=== PATIENT | male | born 1995 | race Caucasian/White ===

== ENCOUNTER 2017-07-05 18:02 | Emergency (ER) | payer OTHER ==
[2017-07-05 18:16] VITALS: BP 154/94; PULSE 64; RESP 18; TEMP 95
[2017-07-05] MEDS ORDERED: Acetaminophen-Codeine 300-30mg TAB PO STA (18:44)
[2017-07-05] MEDS ORDERED: HYDROcodone/APAP 5-325MG 1 EACH TAB PO STA (18:50)
--- NOTE | 2017-07-05 18:51 | ED ---
ENT HPI - General Chief complaint: Dental/Oral Stated complaint: dental pain, infection Time Seen by Provider: 07/05/17 18:37 Source: patient, RN notes reviewed Mode of arrival: ambulatory Limitations: no limitations - History of Present Illness Initial comments: This is a 22 year old male who presents to the emergency department with a chief complaint of dental pain located along the maxilla which has been ongoing for 5 days. The patient admits he has poor dentition, and is not currently under the care of a dentist. He states the pain is also along the gums of the affected teeth. He denies fever or abscess. - Related Data Previous Rx's Medication Instructions Recorded Hydrocodone/Acetaminophen [[place] 1 tab PO Q6HR PRN #15 tab 03/04/17 5-325] Hydrocodone/Acetaminophen [[place] 1 tab PO Q6HR PRN #20 tab 07/05/17 5-325] Ibuprofen [Motrin] 600 mg PO Q8HR PRN #30 tab 07/05/17 Penicillin V Potassium [Pen Vee K] 500 mg PO QID #40 tablet 07/05/17 Allergies Allergy/AdvReac Type Severity Reaction Status Date / Time atomoxetine [From Strattera] Allergy Nausea & Verified 07/05/17 18:16 Vomiting & Diarrhea Review of Systems ROS Statement: Those systems with pertinent positive or pertinent negative responses have been documented in the HPI. ROS Other: All systems not noted in ROS Statement are negative. Past Medical History Past Medical History: No Reported History History of Any Multi-Drug Resistant Organisms: None Reported Past Surgical History: No Surgical Hx Reported Past Psychological History: No Psychological Hx Reported Smoking Status: Current every day smoker Past Alcohol Use History: None Reported Past Drug Use History: Marijuana General Exam Limitations: no limitations General appearance: alert, in no apparent distress Head exam: Present: atraumatic, normocephalic, normal inspection ENT exam: Present: mucous membranes moist, other (Multiple missing and eroded maxillary and mandibular teeth. No inflammation, erythema or notable abscesses present. Tender with palpation of overlying gums of affected teeth. No periorbital or facial edema or erythema.). Absent: normal oropharynx Neck exam: Present: normal inspection, full ROM. Absent: tenderness, meningismus, lymphadenopathy Respiratory exam: Present: normal lung sounds bilaterally. Absent: respiratory distress, wheezes, rales, rhonchi, stridor Cardiovascular Exam: Present: regular rate, normal rhythm, normal heart sounds. Absent: systolic murmur, diastolic murmur, rubs, gallop, clicks Neurological exam: Present: alert, oriented X3, CN II-XII intact Psychiatric exam: Present: normal affect, normal mood Skin exam: Present: warm, dry, intact, normal color. Absent: rash Course Vital Signs 07/05/17 18:14 Temperature 95 F L Pulse Rate 64 Respiratory 18 Rate Blood Pressure 154/94 O2 Sat by Pulse 100 Oximetry Medical Decision Making - Medical Decision Making This is a 22 year old male patient who presented to the ED with a complaint of dental pain. Physical exam revealed mutliple missing and eroded teeth in the maxillary and mandibular region but no evidence of dental abscess. [place] was given for his pain. Disposition Clinical Impression: Dental caries, Toothache Disposition: HOME SELF-CARE Condition: Stable Instructions: Dental Caries (ED), Toothache (ED) Additional Instructions: Please return to the ER if symptoms worsen or any other concerns Prescriptions: Hydrocodone/Acetaminophen [[place] 5-325] 1 tab PO Q6HR PRN #20 tab PRN Reason: Pain Ibuprofen [Motrin] 600 mg PO Q8HR PRN #30 tab PRN Reason: Pain Penicillin V Potassium [Pen Vee K] 500 mg PO QID #40 tablet Referrals: Sergo Garcia MD [Primary Care Provider] - 1-2 days Time of Disposition: 18:54
[2017-07-05] MEDS ORDERED: IBUPROFEN 600 MG TAB PO STA (18:52)
== END 2017-07-05 19:04 | disposition home or self-care (01) ==
LOC: EC 18:02
DX: K02.9 Dental caries, unspecified (principal); F17.200 Nicotine dependence, unspecified, uncomplicated; Z88.8 Allergy status to other drugs, medicaments and biological substances; Z53.8 Procedure and treatment not carried out for other reasons
CPT/HCPCS: 99283

== ENCOUNTER 2017-10-31 22:41 | Emergency (ER) | payer OTHER ==
[2017-10-31 22:49] VITALS: BP 135/80; PULSE 69; RESP 14; TEMP 98.4
--- NOTE | 2017-10-31 22:58 | ED ---
General Adult HPI - General Chief complaint: Dental/Oral Stated complaint: Dental Pain Time Seen by Provider: 10/31/17 22:45 Source: patient, RN notes reviewed Mode of arrival: ambulatory Limitations: no limitations - History of Present Illness Initial comments: This is a 22-year-old male who presents emergency Department complaining of dental pain. Patient states it started a couple days ago and told him there is no fluctuant area or drainage the tooth is extremely tender to touch. Patient states the left upper incisor is well-developed pain is coming from. Patient denies any fever chills. Patient states she's had multiple problems with these in the past. Patient does not have a dentist. Patient has no medication for pain. - Related Data Previous Rx's Medication Instructions Recorded Hydrocodone/Acetaminophen [[place] 1 tab PO Q6HR PRN #15 tab 03/04/17 5-325] Hydrocodone/Acetaminophen [[place] 1 tab PO Q6HR PRN #20 tab 07/05/17 5-325] Ibuprofen [Motrin] 600 mg PO Q8HR PRN #30 tab 07/05/17 Penicillin V Potassium [Pen Vee K] 500 mg PO QID #40 tablet 07/05/17 Amoxicillin 500 mg PO Q8H #30 capsule 10/31/17 Ibuprofen [Motrin] 600 mg PO Q6HR PRN #20 tab 10/31/17 traMADol HCl [Ultram] 50 mg PO Q6H PRN #20 tab 10/31/17 Allergies Allergy/AdvReac Type Severity Reaction Status Date / Time atomoxetine [From Strattera] Allergy Nausea & Verified 10/31/17 22:49 Vomiting & Diarrhea Review of Systems ROS Statement: Those systems with pertinent positive or pertinent negative responses have been documented in the HPI. ROS Other: All systems not noted in ROS Statement are negative. Past Medical History Past Medical History: No Reported History History of Any Multi-Drug Resistant Organisms: None Reported Past Surgical History: No Surgical Hx Reported Past Psychological History: No Psychological Hx Reported Smoking Status: Current every day smoker Past Alcohol Use History: None Reported Past Drug Use History: Marijuana General Exam - General Exam Comments Initial Comments: GENERAL Patient is well-developed and well-nourished. Patient is in mild distress. EYES Patient's pupils are equal and round. Extraocular motion is intact MOUTH Patient has multiple teeth that have severe dental caries. The upper incisors very tender to palpation. There is no obvious abscess or swelling. SKIN Unremarkable NEURO The patient is alert and oriented 3 PYSCH Patient has normal interpersonal interactions. Limitations: no limitations Course Vital Signs 10/31/17 22:46 Temperature 98.4 F Pulse Rate 69 Respiratory 14 Rate Blood Pressure 135/80 O2 Sat by Pulse 100 Oximetry Disposition Clinical Impression: Dental caries, Toothache Disposition: HOME SELF-CARE Instructions: Toothache (ED), Dental Caries (ED) Prescriptions: Amoxicillin 500 mg PO Q8H #30 capsule Ibuprofen [Motrin] 600 mg PO Q6HR PRN #20 tab PRN Reason: For pain traMADol HCl [Ultram] 50 mg PO Q6H PRN #20 tab PRN Reason: When necessary for pain Is patient prescribed a controlled substance at d/c from ED?: No Referrals: Sergo Garcia MD [Primary Care Provider] - 1-2 days Time of Disposition: 22:57
== END 2017-10-31 23:04 | disposition home or self-care (01) ==
LOC: EC 22:41
DX: K02.9 Dental caries, unspecified (principal); F17.200 Nicotine dependence, unspecified, uncomplicated; Z88.8 Allergy status to other drugs, medicaments and biological substances
CPT/HCPCS: 99282

== ENCOUNTER 2017-11-03 18:41 | Emergency (ER) | payer OTHER ==
[2017-11-03 18:48] LABS: Glucose,Whole Blood 105 mg/dL (75-99)
[2017-11-03] MEDS ORDERED: SODIUM CHLORIDE 0.9% 1,000 ML IV ONE (18:50)
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
[2017-11-03 19:08] LABS: Basophils # (A) 0.1 k/uL (0-0.2); Basophils % (A) 1 %; Eosinophils # (A) 0.3 k/uL (0-0.7); Eosinophils % (A) 3 %; Lymphocytes # (A) 2.2 k/uL (1.0-4.8); Lymphocytes % (A) 21 %; MCH 30.5 pg (25.0-35.0); MCV 89.8 fL (80.0-100.0); Mean Platelet Volume 7.3; Monocytes # (A) 0.5 k/uL (0-1.0); Monocytes % (A) 5 %; Neutrophils # (A) 7.1 k/uL (1.3-7.7); Neutrophils % (A) 69 %; Platelet Count 228 k/uL (150-450); RBC 4.89 m/uL (4.30-5.90); RDW 13.3 % (11.5-15.5); WBC 10.3 k/uL (3.8-10.6)
[2017-11-03 19:15] LABS: INR 1.1 (<1.2); Partial Thromboplastin Time 23.9 sec (22.0-30.0); Prothrombin Time 11.1 sec (9.0-12.0)
[2017-11-03 19:18] LABS: ALT 38 U/L (21-72); AST 34 U/L (17-59); Albumin 4.6 g/dL (3.5-5.0); Alcohol 34 mg/dL; Alkaline Phosphatase 41 U/L (38-126); Amylase 69 U/L (30-110); Anion Gap 12 mmol/L; Blood Urea Nitrogen 8 mg/dL (9-20); Calcium 9.5 mg/dL (8.4-10.2); Carbon Dioxide 23 mmol/L (22-30); Chloride 107 mmol/L (98-107); Glucose 93 mg/dL (74-99); Lipase 369 U/L (23-300); Potassium 3.9 mmol/L (3.5-5.1); Sodium 142 mmol/L (137-145); Total Bilirubin 0.4 mg/dL (0.2-1.3); Total Protein 7.2 g/dL (6.3-8.2)
[2017-11-03 19:21] VITALS: BP 139/61; PULSE 80; RESP 18; TEMP 98.1
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
[2017-11-03 19:27] LABS: Creatine Kinase 238 U/L (55-170)
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
[2017-11-03 19:41] LABS: Creatine Kinase MB 1.7 ng/mL (0.0-2.4); Troponin I <0.012 ng/mL (0.000-0.034)
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
--- NOTE | 2017-11-03 19:56 | XR ---
EXAMINATION TYPE: XR knee limited RT DATE OF EXAM: 11/03/2017 COMPARISON: NONE HISTORY: Pain TECHNIQUE: 3 views FINDINGS: There is probably knee joint effusion. I see no fracture nor dislocation. Joint spaces are normal. IMPRESSION: Knee joint effusion.
--- NOTE | 2017-11-03 19:56 | XR ---
EXAMINATION TYPE: XR forearm LT DATE OF EXAM: 11/03/2017 COMPARISON: NONE HISTORY: Pain TECHNIQUE: 2 views FINDINGS: I see no fracture nor dislocation. Wrist joint and elbow joint appear intact. Soft tissues appear normal. IMPRESSION: Negative left forearm exam
[2017-11-03] MEDS ORDERED: MORPHINE SULFATE 2 MG/ML SYRINGE IVP STA (20:23)
[2017-11-03 20:26] LABS: Appearance,Urine Clear (Clear); Bilirubin,Urine Negative (Negative); Blood,Urine Negative (Negative); Color,Urine Light Yellow; Glucose,Urine (UA) Negative (Negative); Ketones,Urine Negative (Negative); Leukocyte Esterase,Urine Negative (Negative); Nitrite,Urine Negative (Negative); Protein,Urine Negative (Negative); Specific Gravity,Urine 1.019 (1.001-1.035); Urobilinogen,Urine <2.0 mg/dL (<2.0)
[2017-11-03 20:38] LABS: Amphetamine Screen,Urine Not Detected (NotDetected); Barbiturate Screen,Urine Not Detected (NotDetected); Benzodiazepines Screen,Urine Not Detected (NotDetected); Cocaine Screen,Urine Not Detected (NotDetected); Methadone Screen, Urine Not Detected (NotDetected); Opiate Screen,Urine Detected (NotDetected); Oxycodone Screen, Urine Not Detected (NotDetected); Phencyclidine Screen,Urine Not Detected (NotDetected); Tricyclic Antidepressant,Urine Not Detected (NotDetected); Urn Cannabinoid Scrn Detected (NotDetected)
[2017-11-03] MEDS ORDERED: LIDOCAINE 1% INJ 10MG/ML (20 ML MDV) SQ ONE (20:38)
== END 2017-11-03 21:25 | disposition home or self-care (01) ==
LOC: EC 18:41
DX: S01.81XA Laceration without foreign body of other part of head, initial encounter (principal); S27.321A Contusion of lung, unilateral, initial encounter; S80.01XA Contusion of right knee, initial encounter; S50.811A Abrasion of right forearm, initial encounter; F17.200 Nicotine dependence, unspecified, uncomplicated; Z88.8 Allergy status to other drugs, medicaments and biological substances; V27.4XXA Motorcycle driver injured in collision with fixed or stationary object in traffic accident, initial encounter; Y92.009 Unspecified place in unspecified non-institutional (private) residence as the place of occurrence of the external cause
CPT/HCPCS: 36415; 93005; 86900; 86901; 80053; 82150; 82550; 82553; 83605; 83690; 84484; 85025; 85610; 85730; 86850; 81003; 80306; 80320; 72170; 73090; 73560; 71045; 72125; 70486; 70450; 71260; 74177; 99284; 12013; 96374; L1830; J2001; J2270; Q9967

== ENCOUNTER 2017-11-03 22:15 | Emergency (ER) | payer OTHER ==
[2017-11-03 22:31] VITALS: RESP 18
[2017-11-03] MEDS ORDERED: ONDANSETRON 4 MG/2 ML VIAL IVP STA (22:37)
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
[2017-11-03 23:26] VITALS: BP 126/67; PULSE 60; TEMP 97.9
== END 2017-11-03 23:30 | disposition home or self-care (01) ==
LOC: EC 22:15
DX: S06.0X9D Concussion with loss of consciousness of unspecified duration, subsequent encounter (principal); R11.2 Nausea with vomiting, unspecified; R07.9 Chest pain, unspecified; F17.200 Nicotine dependence, unspecified, uncomplicated; Z53.29 Procedure and treatment not carried out because of patient's decision for other reasons; Z88.8 Allergy status to other drugs, medicaments and biological substances; V27 Motorcycle rider injured in collision with fixed or stationary object; Y92.410 Unspecified street and highway as the place of occurrence of the external cause
CPT/HCPCS: 99284; 96374; J2405

== ENCOUNTER → 2017-12-16 | Outpatient (CLI) | payer OTHER ==
--- NOTE | 2017-12-16 10:22 | MR ---
EXAMINATION TYPE: MR knee RT wo con DATE OF EXAM: 12/16/2017 COMPARISON: X-ray dated 11/03/2017 HISTORY: Effusion, right knee/ Instability/ Swelling TECHNIQUE: Multiplanar, multisequence imaging of the right knee is performed without IV contrast. FINDINGS: There is a large suprapatellar bursal fluid collection which does have some heterogeneity w hich may represent high protein content or a component of previous hemorrhage. Visualized patellar an d quadriceps tendons are intact. There is distention of the lateral recommended retinaculum but is be lieved to be intact. There is a large area of marrow edema or contusion involving the distal femur. Suspect a linear fract ure through the posterior femoral condyle which is minimally displaced. Medial collateral, lateral collateral, anterior cruciate, posterior cruciate ligaments intact. Lateral meniscus are intact. Linear signal posterior and medial meniscus suspicious for simple linear tear. Patellar cartilage is maintained. IMPRESSION: 1. Large area of marrow edema or contusion involving the distal medial femur with a linear area of ab normal signal involving the superior margin of the posterior femoral condyle compatible with a hairli ne fracture. 2. Simple linear tear posterior horn medial meniscus. 3. Large suprapatellar bursal fluid collection.
== END | disposition home or self-care (01) ==
LOC: RADMRIMAIN 09:28
PROVIDERS: ATTEND Orthopaedic Surgery
DX: S83.241A Other tear of medial meniscus, current injury, right knee, initial encounter (principal); M25.461 Effusion, right knee

== ENCOUNTER 2018-05-29 22:27 | Emergency (ER) | payer OTHER ==
[2018-05-29 22:41] VITALS: BP 149/84; PULSE 73; RESP 18; TEMP 98.2
[2018-05-29] MEDS ORDERED: DIPH,PERTUS(ACELL)TETVAC-LF 0.5 ML VIAL IM ONE (23:11)
[2018-05-29] MEDS ORDERED: LIDOCAINE 1% INJ 10MG/ML (20 ML MDV) SQ ONE (23:11)
[2018-05-29] MEDS ORDERED: IBUPROFEN 600 MG TAB PO STA (23:11)
--- NOTE | 2018-05-30 00:02 | ED ---
Wound/Laceration HPI - General Chief Complaint: Wound/Laceration Stated Complaint: Finger lac on lt hand Time Seen by Provider: 05/29/18 22:58 Source: patient Mode of arrival: ambulatory Limitations: no limitations - History of Present Illness Initial Comments: 23-year-old male patient presents to the emergency department today for evaluation of laceration to the distal tip of the left index finger. Patient states about an hour prior to arrival he was working in a car [place] when a part swiveled and pinched his finger. Patient states he is unable to get the bleeding to stop so he presented here for further evaluation. Patient denies any crush injury. States that he does have full range of motion and full sensation. Denies numbness or tingling. States he is unsure when his last tetanus vaccine was administered. Denies any other injuries. Patient denies any headache, neck pain, back pain, chest pain, shortness of breath, dizziness, weakness, abdominal pain, nausea, vomiting, or difficulties with bowel movements or urination. - Related Data Previous Rx's Medication Instructions Recorded Ibuprofen [Motrin] 600 mg PO Q8HR PRN #30 tab 05/30/18 Allergies Allergy/AdvReac Type Severity Reaction Status Date / Time atomoxetine [From Strattera] Allergy Nausea & Verified 05/29/18 22:49 Vomiting & Diarrhea Review of Systems ROS Statement: Those systems with pertinent positive or pertinent negative responses have been documented in the HPI. ROS Other: All systems not noted in ROS Statement are negative. Past Medical History Past Medical History: No Reported History History of Any Multi-Drug Resistant Organisms: None Reported Past Surgical History: No Surgical Hx Reported Past Psychological History: No Psychological Hx Reported Smoking Status: Current every day smoker Past Alcohol Use History: Rare Past Drug Use History: Marijuana General Exam Limitations: no limitations General appearance: alert, in no apparent distress, other (This is a well- developed, well-nourished adult male patient in no acute distress. Vital signs upon presentation are temperature 98.2F, pulse 73, respirations 18, blood pressure 149/84, pulse ox 100% on room air.) Eye exam: Present: normal appearance, PERRL, EOMI. Absent: scleral icterus, conjunctival injection, periorbital swelling Respiratory exam: Present: normal lung sounds bilaterally. Absent: respiratory distress, wheezes, rales, rhonchi, stridor Cardiovascular Exam: Present: regular rate, normal rhythm, normal heart sounds. Absent: systolic murmur, diastolic murmur, rubs, gallop, clicks Extremities exam: Present: full ROM, normal capillary refill, other (There is 1.5 cm laceration noted to the distal tip of the left index finger. There is no nail involvement. Skin is otherwise pink, warm, dry. Cap refill less than 3 seconds. Radial pulses 2+ and equal bilaterally. She has full range of motion to the right index finger with and without resistance.). Absent: normal inspection, tenderness, pedal edema, joint swelling, calf tenderness Neurological exam: Present: alert, oriented X3, CN II-XII intact Psychiatric exam: Present: normal affect, normal mood Skin exam: Present: warm, dry, intact, normal color. Absent: rash Course Vital Signs 05/29/18 22:37 Temperature 98.2 F Pulse Rate 73 Respiratory 18 Rate Blood Pressure 149/84 O2 Sat by Pulse 100 Oximetry Medical Decision Making - Medical Decision Making 23-year-old male patient presents to the emergency department today for evaluation of laceration to the distal tip of the left index finger. Physical examination did reveal a 1.5 cm laceration to the finger. I did repair the laceration using sutures. I did recommend x-ray to rule out any bony involvement, he refused. I did discuss risk of having a fracture and laceration including risk of infection, he verbalizes understanding and still declined x-ray. We did discuss wound care and signs or symptoms of infection. He is instructed to return in 7 days for suture removal. He is instructed to follow-up with his primary care physician for recheck in 1-2 days. Return parameters discussed in detail. He verbalizes understanding and agrees with this plan Disposition Clinical Impression: Finger laceration Disposition: HOME SELF-CARE Condition: Good Instructions: Care For Your Stitches (ED), Finger Laceration (ED) Additional Instructions: Keep wound clean and dry. Wash twice daily with warm water and antibacterial soap. Do not submerge in water. Monitor for signs or symptoms of infection including but not limited to swelling, redness, drainage of pus, fever, or chills. Return to the emergency department immediately for any new, worsening, or concerning symptoms. Prescriptions: Ibuprofen [Motrin] 600 mg PO Q8HR PRN #30 tab PRN Reason: Pain Is patient prescribed a controlled substance at d/c from ED?: No Referrals: Sergo Garcia MD [Primary Care Provider] - 1-2 days Time of Disposition: 00:02
--- NOTE | 2018-05-30 03:45 | ED ---
Disposition Clinical Impression: Finger laceration Disposition: HOME SELF-CARE Condition: Good Instructions: Care For Your Stitches (ED), Finger Laceration (ED) Additional Instructions: Keep wound clean and dry. Wash twice daily with warm water and antibacterial soap. Do not submerge in water. Monitor for signs or symptoms of infection including but not limited to swelling, redness, drainage of pus, fever, or chills. Return to the emergency department immediately for any new, worsening, or concerning symptoms. Prescriptions: Ibuprofen [Motrin] 600 mg PO Q8HR PRN #30 tab PRN Reason: Pain Is patient prescribed a controlled substance at d/c from ED?: No Referrals: Sergo Garcia MD [Primary Care Provider] - 1-2 days Procedures - Laceration Laceration #1 Consent Obtained: verbal consent Time Out Performed: Yes Indication: laceration Site: hand (Distal tip left index finger) Description: linear Depth: simple, single layer Anesthetic Used: lidocaine 1% Anesthesia Technique: nerve block Amount (mls): 8 Pre-repair: irrigated extensively Type of Sutures: nylon Size of Sutures: 5-0 Number of Sutures: 3 Technique: simple, interrupted Patient Tolerated Procedure: well, no complications Additional Comments: Laceration size: 1.5 cm
== END 2018-05-30 00:12 | disposition home or self-care (01) ==
LOC: EC 22:27
DX: S61.211A Laceration without foreign body of left index finger without damage to nail, initial encounter (principal); F17.200 Nicotine dependence, unspecified, uncomplicated; Z88.8 Allergy status to other drugs, medicaments and biological substances; Z23 Encounter for immunization; W26.8XXA Contact with other sharp object(s), not elsewhere classified, initial encounter; Y93.89 Activity, other specified
CPT/HCPCS: 90715; 99282; 12001; 90471; J2001

== ENCOUNTER 2024-09-15 10:09 | Emergency (ER) | payer OTHER ==
[2024-09-15 10:13] VITALS: TEMP 98
--- NOTE | 2024-09-15 10:38 | ED ---
ENT HPI - General Chief complaint: ENT Stated complaint: Sore Throat Time Seen by Provider: 09/15/24 10:23 Source: patient, RN notes reviewed Mode of arrival: ambulatory Limitations: no limitations - History of Present Illness Initial comments: This is a 29-year-old male presenting for sore throat (11/25) x 5 days. Patient describes pain as sharp with associated lymph node swelling. Patient endorses history of throat swelling without known cause or significant history of strep throat. Also mentions odynophagia and some nasal congestion with yellow discharge. Endorses use of homeopathic treatments and Motrin 400 with minimal relief. Denies fever, chills, fatigue, neck stiffness, drooling, dysphagia, chest pain, dyspnea, abdominal pain, N/V/D. MD complaint: sore throat Onset/Timin -: days(s) Severity scale (1-10): 9 Quality: sharp Consistency: constant Worsens with: swallowing, eating Associated Symptoms: pain with swallowing, rhinorrhea - Related Data Previous Rx's Medication Instructions Recorded Ibuprofen [Motrin] 600 mg PO Q8HR PRN #30 tab 05/30/18 Amoxicillin 500 mg PO BID #20 capsule 09/15/24 predniSONE 50 mg PO DAILY #5 tab 09/15/24 Allergies Allergy/AdvReac Type Severity Reaction Status Date / Time atomoxetine [From Strattera] Allergy Nausea & Verified 09/15/24 10:13 Vomiting & Diarrhea Review of Systems ROS Statement: Those systems with pertinent positive or pertinent negative responses have been documented in the HPI. ROS Other: All systems not noted in ROS Statement are negative. Past Medical History Past Medical History: No Reported History History of Any Multi-Drug Resistant Organisms: None Reported Past Surgical History: No Surgical Hx Reported Past Psychological History: No Psychological Hx Reported Past Alcohol Use History: Rare Past Drug Use History: Marijuana General Exam Limitations: no limitations General appearance: alert, in no apparent distress Head exam: Present: atraumatic, normocephalic, normal inspection Eye exam: Present: normal appearance, PERRL, EOMI. Absent: scleral icterus, conjunctival injection, periorbital swelling ENT exam: Present: mucous membranes dry, other (Tonsils 4+ with erythema and PND. Negative uvular deviation). Absent: normal oropharynx Neck exam: Present: tenderness, lymphadenopathy (Positive bilateral LAD with TTP, especially on left side). Absent: meningismus Respiratory exam: Present: normal lung sounds bilaterally. Absent: respiratory distress, wheezes, rales, rhonchi, stridor Cardiovascular Exam: Present: regular rate, normal rhythm, normal heart sounds. Absent: systolic murmur, diastolic murmur, rubs, gallop, clicks GI/Abdominal exam: Present: soft, normal bowel sounds. Absent: distended, tenderness, guarding, rebound, rigid Extremities exam: Present: normal inspection, full ROM, normal capillary refill. Absent: tenderness, pedal edema, joint swelling, calf tenderness Back exam: Present: normal inspection Neurological exam: Present: alert, oriented X3, CN II-XII intact Psychiatric exam: Present: normal affect, normal mood Skin exam: Present: warm, dry, intact, normal color. Absent: rash Course Vital Signs 09/15/24 10:10 Temperature 98.0 F Pulse Rate 73 Respiratory 16 Rate Blood Pressure 138/64 O2 Sat by Pulse 99 Oximetry Medical Decision Making - Medical Decision Making Was pt. sent in by a medical professional or institution (SYLVAIN Ricks, [employer] SUPERVISOR, urgent care, hospital, or skilled nursing...) When possible be specific @ -[No] Did you speak to anyone other than the patient for history (EMS, parent, family, police, friend...)? What history was obtained from this source @ -[No] Did you review nursing and triage notes (agree or disagree)? Why? @ -[I reviewed and agree with nursing and triage notes] Were old charts reviewed (outside hosp., previous admission, EMS record, old EKG, old radiological studies, urgent care reports/EKG's, skilled nursing records)? Report findings @ -[No old charts were reviewed] Differential Diagnosis (chest pain, altered mental status, abdominal pain women, abdominal pain men, vaginal bleeding, weakness, fever, dyspnea, syncope, headache, dizziness, GI bleed, back pain, seizure, CVA, palpatations, mental health, musculoskeletal)? @ -Strep tonsillitis, viral tonsillitis, URI, COVID, influenza, peritonsillar abscess, infectious mononucleosis, this is not an exhaustive list EKG interpreted by me (3pts min.). @ -[As above] X-rays interpreted by me (1pt min.). @ -[None done] CT interpreted by me (1pt min.). @ -[None done] U/S interpreted by me (1pt. min.). @ -[None done] What testing was considered but not performed or refused? (CT, X-rays, U/S, labs)? Why? @ -[None] What meds were considered but not given or refused? Why? @ -[None] Did you discuss the management of the patient with other professionals (professionals i.e. DrFlakito, PA, [employer] SUPERVISOR, lab, RT, psych nurse, social worker psychiatric, route delivery clerk, teacher, nuclear officer, case assembler)? Give summary @ -[No] Was smoking cessation discussed for >3mins.? @ -[No] Was critical care preformed (if so, how long)? @ -[No] Were there social determinants of health that impacted care today? How? (Homelessness, low income, unemployed, alcoholism, drug addiction, transportation, low edu. Level, literacy, decrease access to med. care, halfway, rehab)? @ -[No] Was there de-escalation of care discussed even if they declined (Discuss DNR or withdrawal of care, Hospice)? DNR status @ -[No] What co-morbidities impacted this encounter? (DM, HTN, Smoking, COPD, CAD, Cancer, CVA, ARF, Chemo, Hep., AIDS, mental health diagnosis, sleep apnea, morbid obesity)? @ -[None] Was patient admitted / discharged? Hospital course, mention meds given and route, prescriptions, significant lab abnormalities, going to OR and other pertinent info. @ -[hospital course] Undiagnosed new problem with uncertain prognosis? @ -[No] Drug Therapy requiring intensive monitoring for toxicity (Heparin, Nitro, Insulin, Cardizem)? @ -[No] Were any procedures done? @ -[No] Diagnosis/symptom? @ -[default] Acute, or Chronic, or Acute on Chronic? @ -Acute Uncomplicated (without systemic symptoms) or Complicated (systemic symptoms)? @ -Uncomplicated Side effects of treatment? @ -[No] Exacerbation, Progression, or Severe Exacerbation? @ -[No] Poses a threat to life or bodily function? How? (Chest pain, [place], PR, pneumonia, PE, COPD, DKA, ARF, appy, cholecystitis, CVA, Diverticulitis, Homicidal, Suicidal, threat to staff... and all critical care pts) @ -[No] - Lab Data Lab Results 09/15/24 Range/Units 10:59 Group A Strep (PCR) DETECTED A (Not Detectd) Disposition Clinical Impression: Streptococcal tonsillitis Disposition: HOME SELF-CARE Condition: Good Instructions (If sedation given, give patient instructions): Tonsillitis (ED) Additional Instructions: Honey, warm fluids, ice chips, popsicles, warm salt water gargles for sore throat. Alternate Tylenol/Motrin every 4 hours for pain. Consider follow-up with PCP/ENT for any recurring symptoms. Prescriptions: Amoxicillin 500 mg PO BID #20 capsule predniSONE 50 mg PO DAILY #5 tab Is patient prescribed a controlled substance at d/c from ED?: No Referrals: None,Stated [Primary Care Provider] - 1-2 days Bradly Hoffman MD [STAFF PHYSICIAN] - 1-2 days Time of Disposition: 11:50
[2024-09-15] MEDS: LIDOCAINE VISCOUS 2% 15 ML CUP PO ONE (10:53)
[2024-09-15] MEDS: methylPREDNISolone SOD SUCCI 125 MG/2 ML VIAL IM ONE (10:58)
[2024-09-15 11:50] LABS: Influenza A Not Detected (Not Detectd); Influenza B Not Detected (Not Detectd); RSV Not Detected (Not Detectd)
[2024-09-15] MEDS: AMOXICILLIN 500 MG CAP PO STA (11:54)
[2024-09-15 12:02] VITALS: BP 136/68; PULSE 70; RESP 18
== END 2024-09-15 12:04 | disposition home or self-care (01) ==
LOC: EC 10:09
DX: J03.00 Acute streptococcal tonsillitis, unspecified (principal); B95.0 Streptococcus, group A, as the cause of diseases classified elsewhere; Z88.8 Allergy status to other drugs, medicaments and biological substances
CPT/HCPCS: 87651; 87636; 99283; 96372; J2919

== ENCOUNTER 2024-11-02 06:12 | Emergency (ER) | payer OTHER ==
[2024-11-02 06:15] VITALS: RESP 18
--- NOTE | 2024-11-02 07:11 | ED ---
ENT HPI - General Chief complaint: Dental/Oral Stated complaint: Dental Pain Time Seen by Provider: 11/02/24 06:55 Source: patient, RN notes reviewed Mode of arrival: ambulatory Limitations: no limitations - History of Present Illness Initial comments: 29-year male presented the ER for evaluation of dental pain. Patient states he has known missing and fractured teeth to upper and lower jaw on his right side. Patient states he woke up at 3 AM with shooting pain to his jaw radiating to his ear. Patient states he is scheduled to see a dentist next week. Patient has attempted to take [id number] Tylenol without relief of symptoms. He states pain makes it difficult for him to eat. He denies any fevers, chills, tongue, throat or lip edema. Denies any difficulty swallowing or breathing. Patient requesting pain control. No other complaints - Related Data Previous Rx's Medication Instructions Recorded Ibuprofen [Motrin] 600 mg PO Q8HR PRN #30 tab 05/30/18 Amoxicillin 500 mg PO BID #20 capsule 09/15/24 predniSONE 50 mg PO DAILY #5 tab 09/15/24 Penicillin V Potassium [Pen Vee K] 500 mg PO QID #40 tablet 11/02/24 Allergies Allergy/AdvReac Type Severity Reaction Status Date / Time atomoxetine [From Strattera] Allergy Nausea & Verified 11/02/24 06:16 Vomiting & Diarrhea Review of Systems ROS Statement: Those systems with pertinent positive or pertinent negative responses have been documented in the HPI. ROS Other: All systems not noted in ROS Statement are negative. Past Medical History Past Medical History: No Reported History History of Any Multi-Drug Resistant Organisms: None Reported Past Surgical History: No Surgical Hx Reported Past Psychological History: Anxiety, Depression Smoking Status: Never smoker Past Alcohol Use History: Rare Past Drug Use History: Marijuana General Exam Limitations: no limitations General appearance: alert, in no apparent distress ENT exam: Present: mucous membranes moist (Missing teeth noted to right side upper and lower jaw. Fractured tooth noted right lower and upper jaw. No drainable abscess. No tongue, tonsil, oropharynx or lip edema. No uvular deviation.), TM's normal bilaterally Neck exam: Present: normal inspection. Absent: tenderness, meningismus, lymphadenopathy Respiratory exam: Present: normal lung sounds bilaterally. Absent: respiratory distress, wheezes, rales, rhonchi, stridor Cardiovascular Exam: Present: regular rate, normal rhythm, normal heart sounds. Absent: systolic murmur, diastolic murmur, rubs, gallop, clicks Neurological exam: Present: alert, oriented X3, CN II-XII intact Skin exam: Present: warm, dry, intact, normal color. Absent: rash Course Vital Signs 11/02/24 11/02/24 06:13 07:38 Temperature 99 F 98.6 F Pulse Rate 61 62 Respiratory 18 18 Rate Blood Pressure 150/110 145/92 O2 Sat by Pulse 98 98 Oximetry Medical Decision Making - Medical Decision Making Was pt. sent in by a medical professional or institution (, [facility], YOUTH CARE PROFESSIONAL, urgent care, hospital, or group home...) When possible be specific @ -No Did you speak to anyone other than the patient for history (EMS, parent, family, police, friend...)? What history was obtained from this source @ -No Did you review nursing and triage notes (agree or disagree)? Why? @ -I reviewed and agree with nursing and triage notes Were old charts reviewed (outside hosp., previous admission, EMS record, old EKG, old radiological studies, urgent care reports/EKG's, group home records)? Report findings @ -No old charts were reviewed Differential Diagnosis (chest pain, altered mental status, abdominal pain women, abdominal pain men, vaginal bleeding, weakness, fever, dyspnea, syncope, headache, dizziness, GI bleed, back pain, seizure, CVA, palpatations, mental health, musculoskeletal)? @ -Dental abscess, fractured tooth, Jamir angina, pulpitis... This list is not meant to be all-inclusive EKG interpreted by me (3pts min.). @ -None done X-rays interpreted by me (1pt min.). @ -None done CT interpreted by me (1pt min.). @ -None done U/S interpreted by me (1pt. min.). @ -None done What testing was considered but not performed or refused? (CT, X-rays, U/S, labs)? Why? @ -None What meds were considered but not given or refused? Why? @ -None Did you discuss the management of the patient with other professionals (professionals i.e. , [facility], YOUTH CARE PROFESSIONAL, lab, RT, psych nurse, older adult social work specialist, plant electrical engineer, teacher, motor equipment commanding officer, correctional case records supervisor)? Give summary @ -No Was smoking cessation discussed for >3mins.? @ -No Was critical care preformed (if so, how long)? @ -No Were there social determinants of health that impacted care today? How? (Homelessness, low income, unemployed, alcoholism, drug addiction, transportation, low edu. Level, literacy, decrease access to med. care, fdc, rehab)? @ -No Was there de-escalation of care discussed even if they declined (Discuss DNR or withdrawal of care, Hospice)? DNR status @ -No What co-morbidities impacted this encounter? (DM, HTN, Smoking, COPD, CAD, Cancer, CVA, ARF, Chemo, Hep., AIDS, mental health diagnosis, sleep apnea, morbid obesity)? @ -None Was patient admitted / discharged? Hospital course, mention meds given and route, prescriptions, significant lab abnormalities, going to OR and other pertinent info. @ -Discharge. 29-year-old male presented the ER for evaluation of dental pain. Vital signs stable. There is fractured and absent teeth noted to right upper and lower jaw. There is no red flags concerning of Jamir angina. Patient will be started on penicillin for infection prophylaxis. Patient provided pain control with p.o. [place], ibuprofen and Orajel in the emergency department. Pat ient discharged with Tylenol 3 starter pack. I advised continued use of [id number] ibuprofen and Tylenol. Instructed patient not to take Tylenol threes when taking Tylenol. Return parameters discussed. Patient discharged stable condition with follow-up to dentist, referral given. Patient verbally expressed understanding agree with care plan. Case discussed with ED attending, Dr. Post. Undiagnosed new problem with uncertain prognosis? @ -No Drug Therapy requiring intensive monitoring for toxicity (Heparin, Nitro, Insulin, Cardizem)? @ -No Were any procedures done? @ -No Diagnosis/symptom? @ -Dental pain/fractured tooth Acute, or Chronic, or Acute on Chronic? @ -Acute Uncomplicated (without systemic symptoms) or Complicated (systemic symptoms)? @ -Uncomplicated Side effects of treatment? @ -No Exacerbation, Progression, or Severe Exacerbation? @ -No Poses a threat to life or bodily function? How? (Chest pain, [place], [place], pneumonia, PE, COPD, DKA, ARF, appy, cholecystitis, CVA, Diverticulitis, Homicidal, Suicidal, threat to staff... and all critical care pts) @ -unlikely Disposition Clinical Impression: Fracture of tooth, Pain, dental Disposition: HOME SELF-CARE Condition: Stable Instructions (If sedation given, give patient instructions): Toothache (ED) Additional Instructions: Follow-up with dentist as scheduled. Take penicillin as prescribed. Return to the ER for any new or worsening concerns. Prescriptions: Penicillin V Potassium [Pen Vee K] 500 mg PO QID #40 tablet Is patient prescribed a controlled substance at d/c from ED?: No Referrals: None,Stated [Primary Care Provider] - 1-2 days Shannen Adhikari DDS [STAFF PHYSICIAN] - 1-2 days Rex Felix DDS [STAFF PHYSICIAN] - 1-2 days Time of Disposition: 07:27
[2024-11-02] MEDS: IBUPROFEN 600 MG TAB PO STA (07:21)
[2024-11-02] MEDS: HYDROcodone/APAP 5-325MG 1 EACH TAB PO STA (07:21)
[2024-11-02] MEDS: ACET/COD 300 MG/30 MG STARTER PACK 6 TAB BTL PO STA (07:22)
[2024-11-02] MEDS: BENZOCAINE 20 % GEL 11.9 GM TUBE MM ONE (07:36)
[2024-11-02 07:39] VITALS: BP 145/92; PULSE 62; TEMP 98.6
== END 2024-11-02 07:38 | disposition home or self-care (01) ==
LOC: EC 06:12
DX: S02.5XXA Fracture of tooth (traumatic), initial encounter for closed fracture (principal); Z88.8 Allergy status to other drugs, medicaments and biological substances; X58.XXXA Exposure to other specified factors, initial encounter
CPT/HCPCS: 99282